=== PATIENT | male | born 1965 | race Caucasian/White ===

== ENCOUNTER 2023-02-28 22:56 | Emergency (ER) | payer SELFPAY ==
[2023-02-28 23:10] VITALS: BP 124/89; PULSE 74; RESP 17; TEMP 97.8
[2023-02-28] MEDS ORDERED: SODIUM CHLORIDE 0.9% 1,000 ML IV ONE (23:45)
== END 2023-03-01 01:07 | disposition left against medical advice (07) ==
LOC: EMS 22:57
DX: F10.129 Alcohol abuse with intoxication, unspecified (principal); F19.10 Other psychoactive substance abuse, uncomplicated; Y90.9 Presence of alcohol in blood, level not specified
CPT/HCPCS: 99281; 99283